=== PATIENT | female | born 1945 | race Caucasian/White ===

== ENCOUNTER → 2023-06-23 11:00 | Outpatient (REF) | payer MEDICARE, SELFPAY | LOC: DHCBC MAIN 11:00 | PROVIDERS: ATTENDING PHYSICIAN Internal Medicine Cardiovascular Disease; FAMILY PHYSICIAN Internal Medicine | DX: I35.1 Nonrheumatic aortic (valve) insufficiency (principal) | CPT/HCPCS: 93306 ==

== ENCOUNTER → 2023-09-05 10:49 | Outpatient (REF) | payer MEDICARE, SELFPAY ==
[2023-09-05 13:26] LABS: Blood Urea Nitrogen 18 mg/dl (7-17)
== END ==
LOC: HWLAB 10:49
PROVIDERS: ATTENDING PHYSICIAN Internal Medicine Critical Care Medicine; FAMILY PHYSICIAN Internal Medicine
DX: R06.02 Shortness of breath (principal); R91.1 Solitary pulmonary nodule
CPT/HCPCS: 36415; 82565; 84520

== ENCOUNTER → 2023-09-29 11:30 | Outpatient (REF) | payer MEDICARE, SELFPAY | LOC: HWRAD 11:30 | PROVIDERS: ATTENDING PHYSICIAN Internal Medicine Critical Care Medicine; FAMILY PHYSICIAN Internal Medicine | DX: R91.1 Solitary pulmonary nodule (principal) | CPT/HCPCS: 71260; Q9967 ==

== ENCOUNTER → 2024-02-23 11:19 | Outpatient (REF) | payer MEDICARE, SELFPAY ==
[2024-02-23 15:37] LABS: ALT (SGPT) 15 U/L (0-35); AST (SGOT) 25 U/L (14-36); Albumin 4.1 g/dl (3.5-5.0); Alkaline Phosphatase 59 U/L (38-126); Blood Urea Nitrogen 25 mg/dl (7-17); Calcium 9.6 mg/dl (8.4-10.2); Carbon Dioxide 32 mmol/L (22-30); Chloride 102 mmol/L (98-107); Glucose 98 mg/dl (70-99); HDL Cholesterol 99 mg/dl; LDL Cholesterol, Calculated 62 mg/dl; Potassium 4.8 mmol/L (3.5-5.1); Sodium 140 mmol/L (135-145); Total Bilirubin 0.9 mg/dl (0.2-1.3); Total Cholesterol 172 mg/dl (50-199); Total Protein 6.4 g/dl (6.3-8.2); Triglyceride 55 mg/dl (10-149); Very Low Density Lipoprotein 11 mg/dl (0-30); eGFR > 60.00
[2024-02-23 16:05] LABS: Free T4 1.64 ng/dl (0.78-2.19)
[2024-02-23 16:19] LABS: TSH 1.12 uIU/ml (0.47-4.68)
[2024-02-23 16:50] LABS: Free T3 3.01 pg/ml (2.77-5.27)
== END ==
LOC: HWLAB 11:19
PROVIDERS: ATTENDING PHYSICIAN Internal Medicine
DX: E78.5 Hyperlipidemia, unspecified (principal); E03.9 Hypothyroidism, unspecified
CPT/HCPCS: 36415; 80053; 80061; 84439; 84443; 84481

== ENCOUNTER → 2024-03-25 13:18 | Outpatient (REF) | payer MEDICARE, SELFPAY | LOC: HWRAD 13:18 | PROVIDERS: ATTENDING PHYSICIAN Internal Medicine | DX: R06.89 Other abnormalities of breathing (principal) | CPT/HCPCS: 71046 ==

== ENCOUNTER → 2024-04-17 11:22 | Outpatient (REF) | payer MEDICARE, SELFPAY | LOC: HWRAD 11:22 | PROVIDERS: ATTENDING PHYSICIAN Internal Medicine Critical Care Medicine; FAMILY PHYSICIAN Internal Medicine | DX: R91.1 Solitary pulmonary nodule (principal) | CPT/HCPCS: 71250 ==

== ENCOUNTER 2024-08-29 06:16 | Day surgery (SDC) | payer MEDICARE, SELFPAY | END 2024-08-29 15:05 | disposition home or self-care (01) | LOC: GI 06:16 | PROVIDERS: ATTENDING PHYSICIAN Specialist | DX: Z12.11 Encounter for screening for malignant neoplasm of colon (principal); D12.2 Benign neoplasm of ascending colon; D12.3 Benign neoplasm of transverse colon; K57.30 Diverticulosis of large intestine without perforation or abscess without bleeding; K64.8 Other hemorrhoids; B37.81 Candidal esophagitis; K22.89 Other specified disease of esophagus; K44.9 Diaphragmatic hernia without obstruction or gangrene; K31.7 Polyp of stomach and duodenum; Z86.0101 Personal history of adenomatous and serrated colon polyps; Z80.0 Family history of malignant neoplasm of digestive organs | CPT/HCPCS: 45385; 45380; 43239; 88305; 87220 ==

== ENCOUNTER 2024-08-31 20:10 | Emergency (ER) | payer MEDICARE, SELFPAY ==
[2024-08-31 20:12] VITALS: BP 126/78
[2024-08-31 20:47] VITALS: BP 131/67
[2024-08-31 21:00] VITALS: BP 127/63
[2024-08-31 21:05] VITALS: BMI 15.2
--- NOTE | 2024-08-31 21:08 | ED.GENMED ---
History of Present Illness
<Kris Dobbins MD, Resident - Last Filed: 08/31/24 23:08>
General
Chief Complaint: Abdominal Symptoms
Time Seen by Provider: 08/31/24 20:39
History of Present Illness
History of Present Illness:
This is a 79-year-old female with past medical history of Renteria's esophagus, GERD who presents to the ED complaining of abdominal pain and throat pain after food got struck in her throat while eating dinner. She reports while eating a piece of
chicken, food got stuck in her throat with swallowing causing a 4 out of 10 pain. She did not vomit, but was able to cough a little piece out. During the episode, she tried drinking water but could not swallow liquid. After a few minutes she was
eventually able to get the food down. She began to experience mid-abdominal pain that she rates as a 3 out of 10. Pain does not radiate anywhere else. At bedside, Patient swallowing her saliva and secretions. She recently had colonoscopy and
endoscopy done 2 days ago.
<Charly Joseph DO - Last Filed: 08/31/24 23:04>
General
Source: patient and family
Past History
<Kris Dobbins MD, Resident - Last Filed: 08/31/24 23:08>
Past History
ED Past Medical History: GERD, Hypothyroidism and Other (Asthma, Renteria's esophagus)
Social History
Tobacco: Other (Former smoker (quit about 30 years ago))
Alcohol: Occasional
Personal:
Living: with family
Employment: Retired
Family History
Family History: Other (no significant)
Phy Exam
<Kris Dobbins MD, Resident - Last Filed: 08/31/24 23:08>
General Physical Exam
General Presentation: well appearing and no apparent distress
ENT Exam
ENT Exam: neck supple (Full range of motion) and swallowing well (Able to swallow saliva)
Cardiovascular Exam
Cardiovascular Exam: regular rate/rhythm and no edema
Pulmonary Exam
Pulmonary Exam: lungs clear and no respiratory distress
Gastrointestinal Exam
Gastrointestinal Exam: normal bowel sounds, soft, non distended and tender (focal Tenderness in the lower abdominal region. )
Neurological Exam
Neurological Exam: alert and oriented x3
Psychiatric Exam
Psychiatric Exam: normal mood/affect
Course
<Kris Dobbins MD, Resident - Last Filed: 08/31/24 23:08>
Orders/Labs/Results
Orders:
Orders
08/31/24 21:41
Sucralfate [Carafate] 1 gram PO NOW STA
08/31/24 21:42
Sucralfate Suspension [Carafate Suspension] 1 gm .ROUTE .STK-MED ONE
08/31/24 21:43
Sucralfate Suspension [Carafate Suspension] 1 gm PO NOW STA
08/31/24 22:38
Sucralfate Suspension [Carafate Suspension] 1 gm PO NOW STA
Sucralfate Suspension [Carafate Suspension] 1 gm TUBE NOW STA
Vital Signs
Initial and Last Documented VS:
Initial Vital Signs
Temp Pulse Resp BP Pulse Ox
98.3 F 79 18 126/78 96
08/31/24 20:12 08/31/24 20:12 08/31/24 20:12 08/31/24 20:12 08/31/24 20:12
Last Documented Vital Signs
Temp Pulse Resp BP Pulse Ox
98.3 F 79 18 106/60 97
08/31/24 20:12 08/31/24 20:12 08/31/24 20:12 08/31/24 22:00 08/31/24 22:46
<Charly Joseph DO - Last Filed: 08/31/24 23:04>
Orders/Labs/Results
Orders:
Orders
08/31/24 21:41
Sucralfate [Carafate] 1 gram PO NOW STA
08/31/24 21:42
Sucralfate Suspension [Carafate Suspension] 1 gm .ROUTE .STK-MED ONE
08/31/24 21:43
Sucralfate Suspension [Carafate Suspension] 1 gm PO NOW STA
08/31/24 22:38
Sucralfate Suspension [Carafate Suspension] 1 gm PO NOW STA
Sucralfate Suspension [Carafate Suspension] 1 gm TUBE NOW STA
Vital Signs
Initial and Last Documented VS:
Initial Vital Signs
Temp Pulse Resp BP Pulse Ox
98.3 F 79 18 126/78 96
08/31/24 20:12 08/31/24 20:12 08/31/24 20:12 08/31/24 20:12 08/31/24 20:12
Last Documented Vital Signs
Temp Pulse Resp BP Pulse Ox
98.3 F 79 18 106/60 97
08/31/24 20:12 08/31/24 20:12 08/31/24 20:12 08/31/24 22:00 08/31/24 22:46
<Kris Dobbins MD, Resident - Last Filed: 08/31/24 23:08>
MDM/Problems Addressed
MDM/Problems Addressed:
79-year-old female with past medical history of by esophagus, GERD presents to the ED reporting food got stuck in her throat. States she was unable to tolerate oral liquids. At bedside, in no acute distress. Swallowing saliva secretion
appropriately. P.o. challenge with a glass of water, patient tolerated at bedside. Discussed case with GI doc (Dr. Moore). Will administer sucralfate .
Update; patient reports symptoms seem to have resolved after administration of sucralfate. On discharge, recommended soft liquid diet and progress slowly.
<Charly Joseph DO - Last Filed: 08/31/24 23:04>
*Pulse Oximetry
Patient hypoxic: no
*Critical Care Note
Total Time (30-74mins, 75-104mins- exclusive of procedures): Not Applicable
Data Reviewed
Source: patient and family
ED Attending Note
<Krsi Dobbins MD, Resident - Last Filed: 08/31/24 23:08>
-
Portions of this chart may have been created with voice recognition software.� Occasional wrong word or��sound alike� substitutions may have occurred due to the inherent limitations of voice recognition software.
<Charly Joseph, - Last Filed: 08/31/24 23:04>
ED Attending Note
Patient seen and examined by attending physician: Yes
I performed a history and physical exam of patient and discussed management with resident, I reviewed resident's note and agree with documented findings and plan of care.: Yes
ED Attending Note:
79-year-old female with history of Renteria's esophagus presents after she had a piece of chicken stuck. The patient states she did vomit and feels like she cleared some food. On my assessment she feels mostly better but feels mostly irritated.
She has been able to swallow her saliva but earlier she was not. Exam: Awake and alert, looks, no drooling. Assessment and plan: Patient feels much improved after Carafate. Tolerating liquids. Case was discussed with GI by the resident. They
will follow as an outpatient. I did recommend clear liquids for now. The patient admits that she was just doing clear liquids and this was the first real meal after her endoscopy.
Discharge Plan
Departure
Patient Disposition: Home (Routine Discharge)
Date of Disposition: 08/31/24
Time of Disposition: 22:44
Patient with high blood pressure during this ER visit?: No
Discharge Problem:
Abdominal pain, Esophageal obstruction due to food impaction
Prescriptions:
New
sucralfate [Carafate] 100 mg/mL suspension
10 ml PO QID Qty: 300 0RF
Rx Instructions:
An hour before meal and an hour before bed.
No Action
atorvastatin 10 MG tablet
10 mg PO QPM
aspirin 81 MG tablet,delayed release (DR/EC)
81 mg PO DAILY
levothyroxine 75 MCG tablet
75 mcg PO DAILY
omeprazole [Prilosec] 20 MG capsule,delayed release(DR/EC)
20 mg PO DAILY
famotidine [Pepcid] 40 mg Tablet
40 mg PO DAILY
diltiazem HCl 240 mg Capsule,Extended Release 24 Hr
120 mg PO DAILY
nitroglycerin [Nitrostat] 0.4 mg Tablet, Sublingual
0.4 mg SUBLINGUAL Q5M PRN (Reason: chest pain)
fluticasone furoate-vilanterol [Breo Ellipta] 100-25 mcg/dose Blister With Device
1 inh INHALATION DAILY
albuterol sulfate 2.5 mg /3 mL (0.083 %) Solution For Nebulization
2.5 mg inhalation R Q4HPRN PRN (Reason: SOB, wheezing) Qty: 20 0RF
multivitamin Tablet
1 tab PO DAILY
calcium carbonate [Calcium Antacid] 300 mg (750 mg) Tablet,Chewable
750 mg PO DAILY
fluticasone propionate [Flonase] 50 mcg/actuation Claude,Suspension
1 spray INTRANASAL DAILY PRN (Reason: congestion)
omega 4-poi-jrj-fish oil [Fish Oil] 1,000 mg (120 mg-180 mg) Capsule
1,000 cap PO DAILY
Referrals:
Myesha Montes MD [Family Provider] -
Activity Restrictions/Additional Instructions:
Stick to soft liquid diet and progress slowly.
Please return for any worsening symptoms.
You may return at any time if you have further concerns.
Please follow up with your doctor at the first available appointment, preferably this week.
Thank you for choosing [facility].
Interventions
Interventions:
*Risk Screen - Suicide Last Done: 08/31/24 21:04
*General Assessment Last Done: 08/31/24 21:04
*Neglect/Abuse Screening Last Done: 08/31/24 21:04
*ED- Fall Risk Assessment Last Done: 08/31/24 21:04
*ED COVID-19 Vaccine History Last Done: 08/31/24 21:04
*Nursing Disposition Last Done: 08/31/24 23:05
KZ-Vjncge-Nqfhddsucl Assessment Last Done: 08/31/24 21:05
Discharge Date and Time
Print Language: MALDIVIAN
--- NOTE | 2024-08-31 21:35 | EDRN ---
Resident has been in the room a few times and in contact with GI, Dr. Del Valle in to see patient as well.
--- NOTE | 2024-08-31 21:41 | EDRN ---
Gave patient water, was able to keep it down, will try some Carafate
[2024-08-31] MEDS: CARAFATE SUSPENSION 1 GM PO ×2 (21:43→22:46)
[2024-08-31 22:00] VITALS: BP 106/60
== END 2024-08-31 23:05 | disposition home or self-care (01) ==
LOC: EMR 20:10
PROVIDERS: EMERGENCY PHYSICIAN Emergency Medicine; FAMILY PHYSICIAN Internal Medicine
DX: T18.128A Food in esophagus causing other injury, initial encounter (principal); K22.2 Esophageal obstruction; W44.F3XA Food entering into or through a natural orifice, initial encounter; R10.9 Unspecified abdominal pain; E03.9 Hypothyroidism, unspecified; Z87.891 Personal history of nicotine dependence; Z87.19 Personal history of other diseases of the digestive system
CPT/HCPCS: 99283

== ENCOUNTER → 2024-12-12 15:00 | Outpatient (REF) | payer MEDICARE, SELFPAY | LOC: RCS 15:00 | PROVIDERS: ATTENDING PHYSICIAN Internal Medicine Cardiovascular Disease; FAMILY PHYSICIAN Internal Medicine | DX: I27.20 Pulmonary hypertension, unspecified (principal) | CPT/HCPCS: 93306 ==

== ENCOUNTER → 2025-01-14 11:09 | Outpatient (REF) | payer MEDICARE, SELFPAY ==
[2025-01-14 16:15] LABS: Hematocrit 38.4 % (37.0-47.0); Hemoglobin 12.2 g/dL (12.0-16.0); Mean Corp Hgb Conc. 31.8 g/dL (33.0-37.0); Mean Corpuscular Volume 95.8 fL (81.0-99.0); Nucleated Red Blood Cells % 0 %; Platelet Count 202 10^3/uL (130-400); Red Cell Dist. Width 13.0 % (11.5-14.5)
[2025-01-14 16:18] LABS: ALT (SGPT) 13 U/L (0-35); AST (SGOT) 22 U/L (14-36); Albumin 4.1 g/dl (3.5-5.0); Alkaline Phosphatase 60 U/L (38-126); Blood Urea Nitrogen 19 mg/dl (7-17); Calcium 9.2 mg/dl (8.4-10.2); Carbon Dioxide 32 mmol/L (22-30); Chloride 104 mmol/L (98-107); Glucose 94 mg/dl (70-99); HDL Cholesterol 87 mg/dl; LDL Cholesterol, Calculated 79 mg/dl; Potassium 4.2 mmol/L (3.5-5.1); Sodium 137 mmol/L (135-145); Total Protein 6.5 g/dl (6.3-8.2); Very Low Density Lipoprotein 9 mg/dl (0-30); eGFR > 60.00
[2025-01-14 16:35] LABS: Free T3 3.22 pg/ml (2.77-5.27)
[2025-01-14 16:49] LABS: TSH 1.97 uIU/ml (0.47-4.68)
[2025-01-15 09:25] LABS: Glycohemoglobin (HgbA1c) 5.5 % (4.0-5.6)
== END ==
LOC: HWLAB 11:09
PROVIDERS: ATTENDING PHYSICIAN Internal Medicine
DX: R63.4 Abnormal weight loss (principal); E03.9 Hypothyroidism, unspecified; K21.9 Gastro-esophageal reflux disease without esophagitis; E78.5 Hyperlipidemia, unspecified
CPT/HCPCS: 36415; 80053; 80061; 83036; 84439; 84443; 84481; 85025

== ENCOUNTER → 2025-05-01 11:38 | Outpatient (REF) | payer MEDICARE, SELFPAY | LOC: RAD 11:38 | PROVIDERS: ATTENDING PHYSICIAN Internal Medicine | DX: U07.1 COVID-19 (principal); J47.1 Bronchiectasis with (acute) exacerbation | CPT/HCPCS: 71046 ==

== ENCOUNTER 2025-05-13 01:18 | Inpatient (IN) | payer MEDICARE, SELFPAY ==
[2025-05-12 15:01] VITALS: BP 105/69
[2025-05-12 15:26] LABS: Hematocrit 37.7 % (37.0-47.0); Hemoglobin 12.0 g/dL (12.0-16.0); Mean Corp Hgb Conc. 31.8 g/dL (33.0-37.0); Mean Corpuscular Volume 95.2 fL (81.0-99.0); Nucleated Red Blood Cells % 0 %; Platelet Count 357 10^3/uL (130-400); Red Cell Dist. Width 13.4 % (11.5-14.5)
[2025-05-12 15:40] LABS: ALT (SGPT) 30 U/L (0-35); AST (SGOT) 27 U/L (14-36); Albumin 3.4 g/dl (3.5-5.0); Alkaline Phosphatase 111 U/L (38-126); Blood Urea Nitrogen 31 mg/dl (7-17); Calcium 8.7 mg/dl (8.4-10.2); Carbon Dioxide 32 mmol/L (22-30); Chloride 100 mmol/L (98-107); Glucose 114 mg/dl (70-99); Potassium 4.4 mmol/L (3.5-5.1); Sodium 137 mmol/L (135-145); Total Protein 6.4 g/dl (6.3-8.2); eGFR > 60.00
[2025-05-12 15:41] LABS: COVID-19 Antigen Negative (Negative)
[2025-05-12 15:54] LABS: Troponin I 0.012 ng/ml
[2025-05-12 19:28] VITALS: BP 115/72
[2025-05-12 19:53] VITALS: BMI 13.8
[2025-05-12 20:51] LABS: D-Dimer 0.95 ug/mlFEU (0.00-0.50)
--- NOTE | 2025-05-12 22:12 | ED.GENMED ---
History of Present Illness
<Feliciano Cordero PA-C - Last Filed: 05/12/25 23:17>
General
Chief Complaint: Breathing Problem
Time Seen by Provider: 05/12/25 19:21
History of Present Illness
History of Present Illness:
80-year-old female with history of COPD and pulmonary hypertension presents to the emergency department for evaluation of increasing shortness of breath. Notes that she had COVID-19 in April and has felt progressively more short of breath since
that time. States that today she bent forward and developed sudden severe right-sided chest pain that is improved while upright. She does have some mild pleuritic discomfort in the right chest. No fevers. Does also have cough with purulent
sputum production. No nausea vomiting or diarrhea. No leg swelling.
Past History
<Feliciano Cordero PA-C - Last Filed: 05/12/25 23:17>
Past History
ED Past Medical History: GERD, Hypothyroidism and Other (Asthma, Renteria's esophagus)
Social History
Tobacco: Other (Former smoker (quit about 30 years ago))
Alcohol: Occasional
Personal:
Living: with family
Employment: Retired
Family History
Family History: Other (no significant)
Review of Systems
<Feliciano Cordero PA-C - Last Filed: 05/12/25 23:17>
Review of Systems
Allergies reviewed?: Yes
All Other Systems: ROS reviewed and negative except as documented in HPI and ROS
Phy Exam
<Feliciano Cordero PA-C - Last Filed: 05/12/25 23:17>
Physical Exam
Physical Exam:
GEN: Well appearing, NAD, WDWN
HEENT: Oral mucosa moist, no scleral icterus
Cardiac: Regular rate and rhythm, no murmur
Lung: Tachypnea, diminished breath sounds in the right apex, otherwise no wheezes or rales
MSK: No gross deformity or injuries
Skin: Good color, no pallor or jaundice, no rashes
Neuro: AO x3, moves all extremities freely
Psych: Calm, cooperative
Scores
<Feliciano Cordero PA-C - Last Filed: 05/12/25 23:17>
Heart Failure Risk
Heart Failure Risk Score: Not Applicable
Course
<Feliciano Cordero PA-C - Last Filed: 05/12/25 23:17>
Orders/Labs/Results
Orders:
Orders
05/12/25 14:45
Electrocardiogram (*1) Urgent
Reason for Study: Shortness of Breath
EKG- Treatment ONCE
05/12/25 15:09
COVID-19 Antigen Urgent
Source: Nasal Swab
Complete Blood Count/With Diff Urgent
Comprehensive Metabolic Panel Urgent
Influenza A+B Rapid Molecular Urgent
ASAD Source: Nasal Swab
Specimen Description:
05/12/25 15:10
Troponin I Urgent
05/12/25 19:49
CR Chest - 2 Views Urgent
Comment:
Reason For Exam: chest pain/SOB
05/12/25 20:30
D-Dimer Urgent
05/12/25 20:58
CT Chest PE Study Urgent
Comment:
Reason For Exam: sob/elevated d dimer
05/12/25 22:12
Azithromycin 500 mg/250 ml [Zithromax Infusion] 500 mg in 250 ml IV NOW
CefTRIAXone [Rocephin] 1,000 mg IV NOW STA
Abnormal Lab Results
05/12/25 05/12/25
15:09 20:30
RBC 3.96 L 10^6/uL
(4.20-5.40)
MCHC 31.8 L g/dL
(33.0-37.0)
Abs Immat Gran (auto) 0.1 H 10^3/uL
(0-0.05)
Absolute Neuts (auto) 8.3 H 10^3/uL
(1.4-6.5)
Absolute Lymphs (auto) 1.0 L 10^3/uL
(1.2-3.4)
Absolute Monos (auto) 0.8 H 10^3/uL
(0.1-0.6)
Immature Gran % 0.6 H %
(0-0.5)
Neutrophils % 80.9 H %
(42.2-75.2)
Lymphocytes % 9.9 L %
(20.5-51.1)
D-Dimer 0.95 H ug/mlFEU
(0.00-0.50)
Carbon Dioxide 32 H mmol/L
(22-30)
BUN 31 H mg/dl
(7-17)
Creatinine 0.5 L mg/dL
(0.6-1.0)
Glucose 114 H mg/dl
(70-99)
Albumin 3.4 L g/dl
(3.5-5.0)
05/12/25 15:09
05/12/25 15:09
Vital Signs
Initial and Last Documented VS:
Initial Vital Signs
Temp Pulse Resp BP Pulse Ox
98.2 F 93 20 105/69 98
05/12/25 15:01 05/12/25 15:01 05/12/25 15:01 05/12/25 15:01 05/12/25 15:01
Last Documented Vital Signs
Temp Pulse Resp BP Pulse Ox
98.2 F 89 14 103/71 100
05/12/25 15:01 05/12/25 23:30 05/12/25 23:30 05/12/25 23:00 05/12/25 23:30
<Alfred Mujica MD - Last Filed: 05/12/25 23:39>
Orders/Labs/Results
Orders:
Orders
05/12/25 14:45
Electrocardiogram (*1) Urgent
Reason for Study: Shortness of Breath
EKG- Treatment ONCE
05/12/25 15:09
COVID-19 Antigen Urgent
Source: Nasal Swab
Complete Blood Count/With Diff Urgent
Comprehensive Metabolic Panel Urgent
Influenza A+B Rapid Molecular Urgent
ASAD Source: Nasal Swab
Specimen Description:
05/12/25 15:10
Troponin I Urgent
05/12/25 19:49
CR Chest - 2 Views Urgent
Comment:
Reason For Exam: chest pain/SOB
05/12/25 20:30
D-Dimer Urgent
05/12/25 20:58
CT Chest PE Study Urgent
Comment:
Reason For Exam: sob/elevated d dimer
05/12/25 22:12
Azithromycin 500 mg/250 ml [Zithromax Infusion] 500 mg in 250 ml IV NOW
CefTRIAXone [Rocephin] 1,000 mg IV NOW STA
Abnormal Lab Results
05/12/25 05/12/25
15:09 20:30
RBC 3.96 L 10^6/uL
(4.20-5.40)
MCHC 31.8 L g/dL
(33.0-37.0)
Abs Immat Gran (auto) 0.1 H 10^3/uL
(0-0.05)
Absolute Neuts (auto) 8.3 H 10^3/uL
(1.4-6.5)
Absolute Lymphs (auto) 1.0 L 10^3/uL
(1.2-3.4)
Absolute Monos (auto) 0.8 H 10^3/uL
(0.1-0.6)
Immature Gran % 0.6 H %
(0-0.5)
Neutrophils % 80.9 H %
(42.2-75.2)
Lymphocytes % 9.9 L %
(20.5-51.1)
D-Dimer 0.95 H ug/mlFEU
(0.00-0.50)
Carbon Dioxide 32 H mmol/L
(22-30)
BUN 31 H mg/dl
(7-17)
Creatinine 0.5 L mg/dL
(0.6-1.0)
Glucose 114 H mg/dl
(70-99)
Albumin 3.4 L g/dl
(3.5-5.0)
05/12/25 15:09
05/12/25 15:09
Vital Signs
Initial and Last Documented VS:
Initial Vital Signs
Temp Pulse Resp BP Pulse Ox
98.2 F 93 20 105/69 98
05/12/25 15:01 05/12/25 15:01 05/12/25 15:01 05/12/25 15:01 05/12/25 15:01
Last Documented Vital Signs
Temp Pulse Resp BP Pulse Ox
98.2 F 89 14 103/71 100
05/12/25 15:01 05/12/25 23:30 05/12/25 23:30 05/12/25 23:00 05/12/25 23:30
<Feliciano Cordero PA-C - Last Filed: 05/12/25 23:17>
MDM/Problems Addressed
MDM/Problems Addressed:
Given the combination of a new small apical pneumothorax as well as left base pneumonia in a patient with compromised lung health, I feel it is reasonable to admit for observation IV antibiotics as well as repeat imaging to be sure the pneumothorax
does not worsen. Clinically stable at this time.
<Feliciano Cordero PA-C - Last Filed: 05/12/25 23:17>
Comment
Comment:
EKG independently interpreted by me shows normal sinus rhythm at a rate of [address] changes concerning for ischemia
*Pulse Oximetry
SaO2: 98
Oxygen Mode of Delivery: Room air
Patient hypoxic: no
*Critical Care Note
Total Time (30-74mins, 75-104mins- exclusive of procedures): Not Applicable
ED Attending Note
<Feliciano Cordero PA-C - Last Filed: 05/12/25 23:17>
-
Portions of this chart may have been created with voice recognition software.� Occasional wrong word or��sound alike� substitutions may have occurred due to the inherent limitations of voice recognition software.
<Alfred Mujica MD - Last Filed: 05/12/25 23:39>
ED Attending Note
Patient seen and examined by attending physician: Yes
I performed the substantive portion of visit, reviewed & personally made and approve the management plan that is documented in note by myself or KWABENA.: Yes
ED Attending Note:
80-year-old female complaining of chest pain shortness of breath. Shortness of breath has been progressive for weeks. Chest pain was sudden today and worse right sided. However now resolved. Known history of COPD and scarring to the right lung.
On exam patient is nontoxic. She is currently eating. She is in no respiratory distress. Lung sounds are distant. No crepitus. Heart regular rate and rhythm. She is warm and dry. Grossly nonfocal.
Cough included a CT scan to rule out pulmonary emboli. There is an apical loculated pneumothorax. All other testing is stable.
Plan is admission and observation of the pneumothorax.
Discharge Plan
Departure
Patient Disposition: Admit
Date of Disposition: 05/12/25
Time of Disposition: 23:17
Admit to: Med/Surg
Presentation/result/management discussed w/ accepting MD/DO: Hospitalist
Discharge Problem:
Pneumothorax, Community acquired pneumonia
Prescriptions:
No Action
atorvastatin 10 MG tablet
10 mg PO QPM
aspirin 81 MG tablet,delayed release (DR/EC)
81 mg PO DAILY
levothyroxine 75 MCG tablet
75 mcg PO DAILY
omeprazole [Prilosec] 20 MG capsule,delayed release(DR/EC)
20 mg PO DAILY
famotidine [Pepcid] 40 mg Tablet
40 mg PO DAILY
diltiazem HCl 240 mg Capsule,Extended Release 24 Hr
120 mg PO DAILY
nitroglycerin [Nitrostat] 0.4 mg Tablet, Sublingual
0.4 mg SUBLINGUAL Q5M PRN (Reason: chest pain)
fluticasone furoate-vilanterol [Breo Ellipta] 100-25 mcg/dose Blister With Device
1 inh INHALATION DAILY
albuterol sulfate 2.5 mg /3 mL (0.083 %) Solution For Nebulization
2.5 mg inhalation R Q4HPRN PRN (Reason: SOB, wheezing) Qty: 20 0RF
multivitamin Tablet
1 tab PO DAILY
calcium carbonate [Calcium Antacid] 300 mg (750 mg) Tablet,Chewable
750 mg PO DAILY
fluticasone propionate [Flonase] 50 mcg/actuation Beeler,Suspension
1 spray INTRANASAL DAILY PRN (Reason: congestion)
omega 2-den-rbt-fish oil [Fish Oil] 1,000 mg (120 mg-180 mg) Capsule
1,000 cap PO DAILY
sucralfate [Carafate] 100 mg/mL suspension
10 ml PO QID Qty: 300 0RF
Rx Instructions:
An hour before meal and an hour before bed.
Referrals:
Myesha Montes MD [Family Provider, Internal Medicine]
Interventions
Interventions:
*General Assessment Last Done: 05/12/25 15:01
*Neglect/Abuse Screening Last Done: 05/12/25 15:01
*ED COVID-19 Vaccine History Last Done: 05/12/25 19:34
*ED Influenza Vaccine History Last Done: 05/12/25 19:34
[facility] Risk Assessment Tool Last Done: 05/12/25 19:54
*Risk Screen - Suicide (C-SSRS) Last Done: 05/12/25 19:55
ED- Cardiac Assessment Last Done: 05/12/25 19:55
ED- Pulmonary Assessment Last Done: 05/12/25 19:55
Discharge Date and Time
Print Language: SCOTTISH
[2025-05-12] MEDS: ROCEPHIN 1000 MG IV (22:16)
[2025-05-12] MEDS: ZITHROMAX INFUSION 250 IV (22:17)
[2025-05-12 23:00] VITALS: BP 103/71
--- NOTE | 2025-05-13 01:12 | HPS.HSE ---
Family Physician
-
Family Physician: Myesha Montes
Chief Complaint
-
SOB, Chest pain
History of Present Illness
Patient is a 80y F with PMH significant for COPD, GERD / esophagitis and hypothyroidism who presents to ED complaining of SOB and chest pain. History obtained from patient and family at the bedside. Patient states that she has been feeling
progressively more SOB x several months. She developed cough and fever in early April and was COVID-positive on 04/25. Patient was treated with budesonide, albuterol, prednisone x 5 days and clotrimazole. Her fevers have improved to some
extent; however, she continues to feel very SOB. Patient reports dyspnea with even minimal activity. She has chronic, hacking cough.
Today she bent forward and developed sudden R sided chest pain. She describes this as a tightness or pressure. The pain lasted x several hours and she presented to the ED for further evaluation.
The pain has since resolved. She is currently resting comfortably in the ED.
Medical History
Past Medical History
Past Medical History: Reports Other
Additional Past Medical History:
COPD / Chronic Bronchiectasis
Hypothyroidism
GERD / Renteria's Esophagitis
Mediastinal Mass
Esophageal Candidiasis
Histoplasmosis
Past Surgical History: Reports Other
Additional Past Surgical History:
PEPPER / BSO
Breast Implants / Removal
Bilateral LE Venous Stripping
Cataracts
Social History
Tobacco: Former Smoker (Quit smoking 40 years ago.)
Alcohol: Occasional
Drug: None
Family History
Family History: Not pertinent
Allergies / Home Medications
Allergies reflects when Allergies were last updated in [facility].
Home Medications with original date entered in [facility]
Allergy/Medication List:
Allergies
Allergy/AdvReac Type Severity Reaction Status Date / Time
ciprofloxacin (From Cipro) Allergy tendonitis Verified 05/12/25 15:05
pollen extracts Allergy Itchy Verified 05/12/25 15:05
eyes,
sneezing,
runny nose
sulfisoxazole Allergy Scabs on Verified 05/12/25 15:05
lips
Home Medications
aspirin 81 mg tablet,delayed release 81 mg PO DAILY Blood clot prevention/tx 01/12/14
atorvastatin 10 mg tablet 10 mg PO QPM High cholesterol 01/12/14
levothyroxine 75 mcg tablet 75 mcg PO DAILY Thyroid 01/12/14
omeprazole 20 mg capsule,delayed release (Prilosec) 20 mg PO DAILY Gastrointestinal issue 01/12/14
diltiazem HCl 240 mg capsule,24 hr,extended release 120 mg PO DAILY Blood pressure 04/29/22
famotidine 40 mg tablet (Pepcid) 40 mg PO HS Gastrointestinal issue 04/29/22
fluticasone furoate 100 mcg-vilanterol 25 mcg/dose inhalation powder (Breo Ellipta) 1 inh inhalation DAILY Lung/breathing issues 04/29/22
albuterol sulfate 2.5 mg/3 mL (0.083 %) solution for nebulization 2.5 mg (3 mL) inhalation R Q4HPRN PRN SOB, wheezing #20 mL 05/01/22
clotrimazole 10 mg juanpablo 10 mg mucous membrane QID 05/13/25
Review of Systems
-
History Source: Patient and Family
A 12 point ROS was completed and negative except as noted: Yes
Constitutional: Reports Fatigue; Denies Fever or Chills
EENT: Reports Sore Throat and Other (Mouth pain)
Respiratory: Reports Cough and Trouble Breathing; Denies Hemoptysis
Cardiac: Reports Chest Pain; Denies Diaphoresis or Palpitations
Abdomen/GI: Denies Abdominal Pain, Nausea, Vomiting or Diarrhea
: Denies Dysuria or Frequency
Musculoskeletal: Denies Joint Pain or Edema
Neurological: Denies Dizzy or Headache
Psych: Denies Depression or Anxiety
Physical Exam
Vital Signs
Vital Signs
Temp Pulse Resp BP Pulse Ox
98.2 F 90 14 103/71 100
05/12/25 15:01 05/12/25 23:45 05/12/25 23:45 05/12/25 23:00 05/12/25 23:45
Physical Exam
General: Other (Frail, cachectic appearing 80y F in no acute distress.)
HEENT: Other (Dry MM with mild erythema and some coating / plaques.)
Respiratory: Other (Decreased BS throughout. No wheezes / rales.)
Cardiac: S1/S2 and Regular Rhythm; No Murmur
GI: Soft, Non Distended, Normal Bowel Sounds and Other (Mild, diffuse tenderness. No rebound / guarding.)
Musculoskeletal: No Clubbing, No Cyanosis, No Edema and Other (Duffuse mucle wasting / cachexia.)
Neuro: AO x 3
Laboratory Results
-
05/12/25 15:09
05/12/25 15:09
Laboratory Results
Total Bilirubin 0.5 mg/dl (0.2-1.3) 05/12/25 15:09
AST 27 U/L (14-36) 05/12/25 15:09
ALT 30 U/L (0-35) 05/12/25 15:09
Alkaline Phosphatase 111 U/L (38-126) 05/12/25 15:09
Troponin I 0.012 ng/ml 05/12/25 15:10
Impression/Plan
-
A/P: Patient is a 80y F with PMH significant for COPD, chronic bronchitis and hypothyroidism who presents to ED complaining of chest pain and SOB.
Chest Pain
Right Pneumothorax
- Admit for further evaluation and treatment.
- Tiny, loculated pneumothorax (2 areas) on the R. Appears new from most recent imaging (though has had similar in the past).
- Monitor for now. Supplemental O2.
- Pulmonary evaluation, serial CXR, etc.
- Monitor for any new / worsening symptoms.
- Cough suppression.
LLL Pneumonia
Recent COVID-19 Infection
- CT shows area of LLL infiltrate.
- Some cough and worsening dyspnea - though seems very chronic.
- Not clear there is an acute infectious process at present.
- Will continue abx for CAP for now.
- Follow for any fever or new / worsening symptoms.
COPD / Chronic Bronchitis
- No wheezing on exam.
- Nebs TAC and PRN. O2 support.
- Abx as noted above.
- Pulmonary evaluation for additional recommendations.
GERD / Renteria's Esophagus
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
- Change clotrimazole to nystatin swish and swallow for now.
- Monitor for any change in symptoms.
- GI evaluation for additional recommendations - ? endoscopic examination.
- May benefit from more systemic treatments.
- Patient reports that symptoms have been persistent x months and she is on maintenance clotrimazole chronically.
- Continue acid-suppression regimen.
Mediastinal Mass / Adenopathy
- Unclear etiology. Serial imaging with gradual increase in size over time.
- EGD has been done with no noted intraluminal abnormality.
- EGD with LN biopsy done November 2022. No evidence of malignancy at that time - reactive lymph node.
- ? related to ongoing / chronic esophageal candidiasis, remote history of histoplasmosis, etc.
Hypothyroidism
- Check TFTs and adjust T4 supplementation if needed.
DVT Prophylaxis: Subcut Heparin
Code Status: Full
[2025-05-13] MEDS: NSS 1000 IV (04:55)
[2025-05-13 05:22] LABS: Blood Urea Nitrogen 23 mg/dl (7-17); Calcium 8.2 mg/dl (8.4-10.2); Carbon Dioxide 30 mmol/L (22-30); Chloride 104 mmol/L (98-107); Estimated Creatinine Clearance 41 ml/min; Glucose 100 mg/dl (70-99); Potassium 4.2 mmol/L (3.5-5.1); Sodium 135 mmol/L (135-145); eGFR > 60.00
[2025-05-13 05:32] LABS: Hematocrit 32.4 % (37.0-47.0); Hemoglobin 10.7 g/dL (12.0-16.0); Mean Corp Hgb Conc. 33.0 g/dL (33.0-37.0); Mean Corpuscular Volume 93.4 fL (81.0-99.0); Platelet Count 280 10^3/uL (130-400); Red Cell Dist. Width 13.3 % (11.5-14.5)
[2025-05-13] MEDS: SYNTHROID 75 MCG PO (06:33)
--- NOTE | 2025-05-13 07:15 | W.PN.HOSP.TC ---
Today's Communication/Plan
-
discharge
Assessment / Plan
Assessment / Plan
Physical Exam
General: Frail, cachectic appearance, no acute distress, appears comfortable at this time
HEENT: moist oral mucosa EOMI
Respiratory: clear to auscultation b/l
Cardiac: S1/S2 and Regular Rhythm; No Murmur
GI: Soft, Non Distended, Normal Bowel Sounds, non tender
Musculoskeletal: No Clubbing, No Cyanosis, No Edema
Neuro: AO x 3 conversant coherent
Psych: Calm
A/P: Patient is a 80y F with PMH significant for COPD, chronic bronchitis and hypothyroidism who presents to ED complaining of chest pain and SOB.
Chest Pain Resolved
Small loculated pneumothorax in the anterior upper right hemithorax and along the posteromedial right hemithorax as noted on CT
- Small loculated pneumothorax (2 areas) on the R. Appears new from most recent imaging (though has had similar in the past).
- Stable respiratory status on room air
- Reports feeling well since overnight admission, unwilling to stay for further inpatient evaluation, close follow up recommmended
LLL Pneumonia
Recent COVID-19 Infection
- CT shows area of LLL infiltrate.
- Some cough and worsening dyspnea - though seems very chronic.
- empiric IV abx switched to Augmentin 5 day course
COPD / Chronic Bronchitis
- No wheezing on exam.
- Abx as noted above.
GERD / Renteria's Esophagus
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
- Patient reports that symptoms have been persistent x months and she is on maintenance clotrimazole chronically.
- Continue acid-suppression regimen.
- cont routine follow up with GI doctor
Mediastinal Mass / Adenopathy
- Unclear etiology. Serial imaging with gradual increase in size over time.
- EGD has been done with no noted intraluminal abnormality.
- EGD with LN biopsy done November 2022. No evidence of malignancy at that time - reactive lymph node.
Hypothyroidism
- TSH wnl, cont home supplementation
DVT Prophylaxis: Subcut Heparin
Code Status: Full
Medically stable for discharge home with outpatient follow up recommendations.
Total Time Preparing Discharge __40 minutes including examination of the patient, summary of the hospital stay, instructions for continuing care to all relevant caregivers; and preparation of discharge records, prescriptions, and referral
forms if necessary.
Anticipated Discharge: Today
Subjective/Interval History
-
Date of Service: May 13, 2025
No acute distress, reports symptoms resolved, pain free, tolerating diet. stable respiratory status on room air
Objective Data
-
Labs:
Laboratory Results
05/13/25
05:01
WBC 7.5
Hgb 10.7 L
Hct 32.4 L
Plt Count 280 D
Sodium 135
Potassium 4.2
Chloride 104
Carbon Dioxide 30
BUN 23 H
Creatinine 0.5 L
Glucose 100 H
Calcium 8.2 L
Vital Signs:
Vital Signs
Temp Pulse Resp BP Pulse Ox
98.2 F 85 22 103/71 97
05/12/25 15:01 05/13/25 05:00 05/13/25 05:00 05/12/25 23:00 05/13/25 05:00
[2025-05-13 07:28] VITALS: BP 124/72
[2025-05-13 08:00] VITALS: BP 127/82
--- NOTE | 2025-05-13 08:57 | EDCM ---
Reviewed chart and met with pt bedside in ED. Lives alone although granddaughters are there frequently. 2 SH, 3 NIGHAT.
Independent in ADLs, personal care and ambulation at baseline, No assistive devices, only DME is nebulizer.
PMH includes COPD, chronic bronchitis, Pulmonary HTN, GERD, Hypothyroid, Barretts Esophagus, Covid 04/2025
Confirms prescription coverage.
No hx HH or SNF
PCP: Myesha Montes
Rx: [facility]
Pt tells me she is leaving today, Family will transport home, I encouraged her to wait and speak with Provider before leaving.
Discussed with SAGAR Cowan.
CM will continue to follow for all discharge planning needs.
[2025-05-13 09:34] VITALS: BP 129/85
--- NOTE | 2025-05-13 09:46 | W.DCSUMMARY ---
Discharge Summary
Discharge Data
Date of Admission: 05/13/25
Date of Discharge: 05/13/25
-
Pending Results: No
Discharge Plan
-
Patient Disposition: Home (Routine Discharge)
Discharge Diagnosis/Procedures: Small Right Lung Pneumothorax
Community Acquired Pneumonia
Cachexia/underweight, BMI<18.5
Condition: Fair
Diet: Regular
Activity: As tolerated
Driving Restrictions: As prior to admission
Bathing Restrictions: None
Blood Work: Repeat CBC and BMP with primary care provider in 1 week of discharge
Others Tests: Repeat Chest X-ray with primary care provider or Pulmonology in 1 week of discharge
Activity Restrictions/Additional Instructions:
Follow up with primary care provider and Pulmonology in 1 week of discharge.
Augmentin prescribed for 5 days treatment pneumonia.
Referrals:
Myesha Montes MD [Family Provider, Internal Medicine] - in one week
Deon Duvall MD [Active, Pulmonary Medicine] - in one week
Prescriptions:
New
amoxicillin-pot clavulanate 875-125 mg Tablet
1 tab PO Q12 5 Days Qty: 10 0RF
Continued
atorvastatin 10 MG tablet
10 mg PO DAILY
aspirin 81 MG tablet,delayed release (DR/EC)
81 mg PO QPM
levothyroxine 75 MCG tablet
75 mcg PO DAILY
famotidine [Pepcid] 40 mg Tablet
40 mg PO HS
fluticasone furoate-vilanterol [Breo Ellipta] 100-25 mcg/dose Blister With Device
1 inh INHALATION R DAILY
clotrimazole 10 mg Jori
10 mg MUCOUS MEMBRANE QID
therapeutic multivitamin Tablet
1 tab PO DAILY
omeprazole 20 mg Capsule,Delayed Release(Dr/Ec)
20 mg PO DAILY
diltiazem HCl 120 mg capsule,extended release 24hr
120 mg PO QPM
albuterol sulfate 90 mcg/actuation Hfa Aerosol Inhaler
1 inh INHALATION R DAILYPRN PRN (Reason: sob)
Discharge Orders:
Discharge Patient (As Directed); Ordered 05/13/25
Ordered By: Jair Pires
Discharge Date and Time
Print Language: BANGLADESHI
[2025-05-13] MEDS: AUGMENTIN 875 MG/125 MG 1 TABLET PO (10:06)
== END 2025-05-13 10:43 | disposition home or self-care (01) | DRG 199 ==
LOC: ED 01:18
PROVIDERS: Emergency Medicine; Physician Assistant; ADMITTING PHYSICIAN Hospitalist; ATTENDING PHYSICIAN Internal Medicine; EMERGENCY PHYSICIAN Emergency Medicine; FAMILY PHYSICIAN Internal Medicine
DX: J93.9 Pneumothorax, unspecified (principal); J18.9 Pneumonia, unspecified organism; J44.0 Chronic obstructive pulmonary disease with (acute) lower respiratory infection; R64 Cachexia; Z68.1 Body mass index [BMI] 19.9 or less, adult; J47.0 Bronchiectasis with acute lower respiratory infection; R63.6 Underweight; Z79.890 Hormone replacement therapy; Z79.51 Long term (current) use of inhaled steroids; K21.9 Gastro-esophageal reflux disease without esophagitis; E03.9 Hypothyroidism, unspecified; Z87.891 Personal history of nicotine dependence; Z11.52 Encounter for screening for COVID-19; I27.20 Pulmonary hypertension, unspecified; Z86.16 Personal history of COVID-19; J45.909 Unspecified asthma, uncomplicated
CPT/HCPCS: 71046; 71275; 80048; 80053; 84443; 84484; 85025; 85027; 85379; 87502; 87811; 93005; Q9967